=== PATIENT | male | born 1980 | race African-American/Black ===

== ENCOUNTER 2020-02-05 19:10 | Emergency (ER) | payer OTHER ==
[~2020-02-05] VITALS: Ht 185.4 cm; Wt 104.3 kg
[~2020-02-05 19:10] MED LIST: FLONASE 0.05%50 MCG NASAL; ONDANSETRON HCL4 M2 PO; ZPAK PO
[2020-02-05 20:03] LABS: ABSOLUTE NEUTROPHILS 15.4 thou/uL (1.4-8.2); BASOPHILS 0.4 % (0.0-2.0); EOSINOPHILS 0.1 % (0.0-3.0); HEMATOCRIT 43.2 % (42.0-52.0); HEMOGLOBIN 14.3 gm/dL (14.0-18.0); LYMPHOCYTES 5.6 % (24.0-44.0); MCH 28.4 pg (26.0-34.0); MCHC 33.1 g/dL (28.0-37.0); MCV 85.6 fL (80.0-100.0); MONOCYTES 8.4 % (1.0-8.0); PLATELET COUNT 253 thou/uL (150-400); POLYS 85.5 % (36.0-66.0); RBC 5.05 mil/uL (4.50-6.00); RDW 13.1 % (10.5-14.5)
[2020-02-05 20:11] LABS: CALCIUM 8.9 mg/dL (8.5-10.1); CREATININE 0.8 mg/dL (0.7-1.3); POTASSIUM 3.5 mmol/L (3.5-5.1)
[2020-02-05 20:16] LABS: ALBUMIN 4.1 g/dL (3.4-5.0); TOTAL BILIRUBIN 1.3 mg/dL (0.2-1.0)
[2020-02-05 20:36] LABS: URINE BILIRUBIN 1+ (Negative); URINE BLOOD 2+ (Negative); URINE CLARITY CLEAR; URINE COLOR YELLOW; URINE GLUCOSE-RANDOM* NEGATIVE (Negative); URINE KETONES 2+ (Negative); URINE LEUKOCYTES-REFLEX NEGATIVE (Negative); URINE NITRITE-REFLEX NEGATIVE (Negative); URINE PROTEIN (DIPSTICK) 2+ (Negative)
[2020-02-05 20:38] LABS: ICTOTEST (BILI CONFIRMATORY) Positive (Negative)
[2020-02-05 20:45] LABS: CASTS None Seen /LPF (None Seen); SQUAMOUS 0-3 Few /LPF (0-3); URINE RBC 3-10 Few /HPF (0-2); URINE WBC-REFLEX 0-5 Rare /HPF (0-5)
[2020-02-05 20:46] LABS: BACTERIA-REFLEX 1-9 Few /HPF (None Seen); CRYSTALS None Seen /LPF (None Seen); MUCUS 0-3 Light strn/LPF (None Seen)
[2020-02-05] MEDS ORDERED: ZOFRAN ODT4 MG PO (22:53)
[2020-02-05] MEDS ORDERED: NORCO 5-325 TA1 EAC2 PO (22:58)
[2020-02-05 23:02] VITALS: BP 160/85
== END 2020-02-05 23:04 | disposition home or self-care (01) ==
LOC: ER 19:10
PROVIDERS: Emergency Medicine
DX: K85.90 Acute pancreatitis without necrosis or infection, unspecified (principal); Z88.0 Allergy status to penicillin

== ENCOUNTER 2020-02-09 15:01 | Inpatient (IN) | payer OTHER ==
[~2020-02-09] VITALS: Ht 185.4 cm; Wt 93.4 kg
[~2020-02-09 15:01] MED LIST changes: +NORCO 5-325 TA1 EAC2 PO; +ZOFRAN ODT4 MG PO
[2020-02-09 15:02] VITALS: BP 153/94
[2020-02-09 15:31] LABS: HEMATOCRIT 38.8 % (42.0-52.0); HEMOGLOBIN 12.8 gm/dL (14.0-18.0); MCH 28.1 pg (26.0-34.0); MCV 85.1 fL (80.0-100.0); PLATELET COUNT 310 thou/uL (150-400); RBC 4.55 mil/uL (4.50-6.00); RDW 13.1 % (10.5-14.5); WBC 15.1 thou/uL (4.0-11.0)
[2020-02-09 15:40] LABS: CREATININE 0.7 mg/dL (0.7-1.3); POTASSIUM 3.2 mmol/L (3.5-5.1)
[2020-02-09 15:47] LABS: ALBUMIN 3.5 g/dL (3.4-5.0); TOTAL BILIRUBIN 0.9 mg/dL (0.2-1.0); TOTAL PROTEIN 8.3 g/dL (6.4-8.2)
[2020-02-09 16:17] LABS: ABSOLUTE NEUTROPHILS 12.4 thou/uL (1.4-8.2)
[2020-02-09 16:18] LABS: ANISOCYTOSIS 1+; POLYCHROMASIA OCCASIONAL
[2020-02-09 16:45] LABS: URINE BILIRUBIN 2+ (Negative); URINE BLOOD 2+ (Negative); URINE CLARITY CLEAR; URINE COLOR YELLOW; URINE GLUCOSE-RANDOM* TRACE (Negative); URINE KETONES 3+ (Negative); URINE LEUKOCYTES-REFLEX NEGATIVE (Negative); URINE NITRITE-REFLEX NEGATIVE (Negative); URINE PROTEIN (DIPSTICK) 1+ (Negative); URINE UROBILINOGEN >= 8.0 E.U./dl (0.2-1.0)
[2020-02-09 16:47] LABS: ICTOTEST (BILI CONFIRMATORY) Negative (Negative)
[2020-02-09 17:03] LABS: BACTERIA-REFLEX 1-9 Few /HPF (None Seen); CASTS None Seen /LPF (None Seen); CRYSTALS None Seen /LPF (None Seen); SQUAMOUS 0-3 Few /LPF (0-3); URINE WBC-REFLEX 0-5 Rare /HPF (0-5)
[2020-02-09 17:04] LABS: MUCUS 0-3 Light strn/LPF (None Seen)
[2020-02-09 17:42] VITALS: BP 153/94
--- NOTE | 2020-02-09 17:43 | NUR ---
FIRST ATTEMPT AT REPORT. TOLD TO CALL BACK IN 5 MINS
[2020-02-09 17:58] VITALS: BP 136/74
--- NOTE | 2020-02-09 18:31 | NUR ---
PT ARRIVED ON THE UNIT 1809, VSS, REPORTS PAIN IN LEFT ABD AREA. PT IS ACCOMPANIED BY . NURSE EDUCATED PT ABOUT CALL LIGHT AND VISITING HOURS. IV S/L IN RIGHT AC. CALL LIGHT IN REACH, WILL CONTINUE TO MONITOR.
[2020-02-09 18:36] VITALS: BP 162/80
--- NOTE | 2020-02-10 02:20 | NUR ---
ASSUMED CARE OF PT @1900. PT A&O4 ADMISSION DONE AND PT ORIENTED TO THE UNIT. IV LEAKING, NEW IV 22G INSERTED IN RT HAND. IVF INFUSING. PT NPO DUE TO PANCREATITIS. MORPHINE GIVEN FOR PAIN. PT UP AD FAMILIA. CALL LIGHT AT REACH AND WILL CONT WITH POC TILL EOS.
[2020-02-10 04:50] VITALS: BP 155/95
[2020-02-10 06:06] LABS: HEMATOCRIT 33.6 % (42.0-52.0); HEMOGLOBIN 11.2 gm/dL (14.0-18.0); MCH 28.4 pg (26.0-34.0); MCHC 33.3 g/dL (28.0-37.0); MCV 85.4 fL (80.0-100.0); RBC 3.93 mil/uL (4.50-6.00); RDW 12.8 % (10.5-14.5); WBC 13.8 thou/uL (4.0-11.0)
[2020-02-10 06:13] LABS: CALCIUM 8.4 mg/dL (8.5-10.1); CREATININE 0.8 mg/dL (0.7-1.3); MAGNESIUM 2.2 mg/dL (1.8-2.4); POTASSIUM 3.4 mmol/L (3.5-5.1)
[2020-02-10 09:28] LABS: ALBUMIN 2.9 g/dL (3.4-5.0); DIRECT BILIRUBIN 0.2 mg/dL (<0.1-0.2); TOTAL BILIRUBIN 0.7 mg/dL (0.2-1.0); TOTAL PROTEIN 7.2 g/dL (6.4-8.2)
--- NOTE | 2020-02-10 09:32 | NUR ---
ASSESSMENT: CM REVIEWED CHART AND MET WITH PATIENT. PT IS ALERT AND ORIENTED X4. PT WAS ADMITTED DUE TO PANCREATITIS. PT REPORTS THAT HE LIVES IN A HOUSE WITH HIS AND FAMILY. PT REPORTS BEING FULLY INDEPENDENT WITH ADLS AND AMBULATION. PT HAS HX OF ALCOHOL USE AND CM OFFERED TO PROVIDE RESOURCES BUT PT DECLINES STATING HE IS STOPPING DRINKING. PT DECLINES THE NEED FOR AA RESOURCES. PT REPORTS HE DOES NOT ANTICIPATE HAVING ANY NEEDS FROM CM. CM WILL CONTINUE TO FOLLOW TO ASSIST NEEDED.
[2020-02-10 10:22] VITALS: BP 174/99
--- NOTE | 2020-02-10 11:36 | NUR ---
PT IS UP AD FAMILIA, A&OX4, BLOOD PRESSURE ELEVATED, DR AMAYA NOTIFIED, TX IS MEDICATION. PT ON BOWEL REST, DIET CHANGED FROM NPO TO CLEAR LIQUIDS, WILL CONTINUE TO MONITOR.
[2020-02-10 18:22] VITALS: BP 168/87
[2020-02-10 19:28] VITALS: BP 166/91
--- NOTE | 2020-02-10 20:03 | NUR ---
DR AMAYA NOTIFIED ABOUT ELEVATED B/P, RECEIVED OR FOR HYDRALAZINE IV, BUT ON BACK ORDER FROM PHARMACY, STARTED NORVASC 5 MG, B/P 158/88. IV KNOCKED OUT ACCIDENTLY, IV TEAM REPLACED LEFT FOREARM NS AT 100CC/HR CONTINUES. TOLERATES CLEAR LIQUIDS THIS SHIFT. I AGREE WITH NURSING ASSESSMENT DONE BY NICANOR/ROCK.
[2020-02-10 20:53] VITALS: BP 158/91
--- NOTE | 2020-02-11 01:49 | NUR ---
ASSESSED AT START OF SHIFT 1900. PT AOX4 C/O PAIN MANAGED WITH MORPHINE. PT UP AD FAMILIA. BP MONITORED. IV INTACT AND FLUIDS INFUSING. PT ON CLEAR LIQUIDS DENIES N/V. CALL LIGHT AT REACH. WILL CONT WITH POC TILL EOS.
[2020-02-11 03:48] VITALS: BP 155/98
[2020-02-11 06:31] LABS: HEMATOCRIT 33.4 % (42.0-52.0); HEMOGLOBIN 10.9 gm/dL (14.0-18.0); MCH 27.9 pg (26.0-34.0); MCHC 32.6 g/dL (28.0-37.0); MCV 85.5 fL (80.0-100.0); RBC 3.91 mil/uL (4.50-6.00); RDW 13.3 % (10.5-14.5); WBC 12.5 thou/uL (4.0-11.0)
[2020-02-11 06:42] LABS: CALCIUM 8.4 mg/dL (8.5-10.1); CREATININE 0.7 mg/dL (0.7-1.3); MAGNESIUM 1.9 mg/dL (1.8-2.4); POTASSIUM 3.3 mmol/L (3.5-5.1)
--- NOTE | 2020-02-11 12:44 | NUR ---
on-going assessment: CM REVIEWED CHART. PT IS FEBRILE AND INCREASED WBC. PT IS NOT STABLE FOR DISCHARGE THIS TIME. ADVANCING PATIENTS DIET. CM WILL CONTINUE TO FOLLOW.
--- NOTE | 2020-02-11 17:20 | NUR ---
PT ASSESSED AT START OF SHIFT. STATES HE IS FEELING BETTER SINCE ADMISSION. DOES UNDERSTAND HE NEEDS TO QUITE ETOH AND IS VERY WILLING AND INTERESTED IN AA. PT AMBULATING IN THE HALLS. LAXATIVE ORDERED FOR BOWELS.
[2020-02-11 19:23] VITALS: BP 164/93
[2020-02-11 21:50] VITALS: BP 149/97
--- NOTE | 2020-02-12 03:24 | NUR ---
ASSESSED AT START OF SHIFT. PT RESTING WELL. DENIES N/V. MORPHINE GIVEN FOR PAIN 09/13. IV INTACT WITH FLUIDS INFUSING. PT UP AD FAMILIA. ENRIQUE FULL LIQUID WELL. PT EXPRESSED GREAT RELIEF TOWARDS PROGRESS AND LIFE STYLE CHANGES. CALL LIGHT AT REACH WILL CONT WITH POC TILL EOS.
[2020-02-12 06:00] LABS: HEMATOCRIT 34.1 % (42.0-52.0); HEMOGLOBIN 11.4 gm/dL (14.0-18.0); MCH 28.2 pg (26.0-34.0); MCHC 33.5 g/dL (28.0-37.0); MCV 84.3 fL (80.0-100.0); RBC 4.04 mil/uL (4.50-6.00); RDW 13.1 % (10.5-14.5); WBC 10.7 thou/uL (4.0-11.0)
[2020-02-12 06:25] LABS: CALCIUM 8.9 mg/dL (8.5-10.1); CREATININE 0.6 mg/dL (0.7-1.3); POTASSIUM 3.8 mmol/L (3.5-5.1)
[2020-02-12 07:55] VITALS: BP 155/102
--- NOTE | 2020-02-12 11:39 | NUR ---
ON-GOING ASSESSMENT: CM REVIEWED CHART AND SPOKE WITH BEDSIDE RN. PTS DIET IS ADVANCING TO SOFT AND CONTINUING WITH IV FLUIDS. PT IS FROM HOME AND SHOULD HAVE NO NEEDS AT DISCHARGE FROM . CM WILL CONTINUE TO FOLLOW TO ASSIST NEEDED.
[2020-02-12 16:01] VITALS: BP 153/89
--- NOTE | 2020-02-12 16:59 | NUR ---
Assumed care of patient at 0700. Pt. is calm and cooperative. Pt. complains of intermittent pain that is controlled with medication. No other voiced concerns.
[2020-02-12 20:33] VITALS: BP 147/94
--- NOTE | 2020-02-13 04:09 | NUR ---
ASSUMED PT CARE AT 1900.PT C/O PAIN ,MANAGED WITH MED.PT UP ADLIB IN ROOM.PT WALKED A COUPLE OF LAPS.PT EDUCATED ON THE NEED FOR HIM TO QUIT DRINKING,VOICED UNDERSTANDING.IVF INFUSING ORDERED.PT ABLETO MAKE HIS NEEDS KNOWN.CALL LIGHT WITHIN REACH.
[2020-02-13 06:27] LABS: HEMATOCRIT 35.1 % (42.0-52.0); HEMOGLOBIN 11.8 gm/dL (14.0-18.0); MCH 28.3 pg (26.0-34.0); MCHC 33.6 g/dL (28.0-37.0); MCV 84.2 fL (80.0-100.0); RBC 4.17 mil/uL (4.50-6.00); WBC 9.6 thou/uL (4.0-11.0)
[2020-02-13 06:37] LABS: CALCIUM 9.2 mg/dL (8.5-10.1); CREATININE 0.7 mg/dL (0.7-1.3); MAGNESIUM 1.9 mg/dL (1.8-2.4); POTASSIUM 3.6 mmol/L (3.5-5.1)
[2020-02-13 07:15] VITALS: BP 158/104
[2020-02-13] MEDS ORDERED: NORVASC10 MG PO (09:59)
[2020-02-13] MEDS ORDERED: LORCET 5-325 M1 EACH PO (09:59)
[2020-02-13] MEDS ORDERED: METOPROLOL TART25 MG PO (09:59)
[2020-02-13 12:42] VITALS: BP 158/104
--- NOTE | 2020-02-13 13:08 | NUR ---
ON-GOING ASSESSMENT: PT DISCHARGE HOME WITH NO NEEDS.
--- NOTE | 2020-02-13 14:18 | NUR ---
Assumed care of pt. at 0700. Pt. is calm and cooperative. Pt. is excited for possibility of discharge. Pt. was able to go the entire morning without asking for pain medication. Pt. received discharge teaching and orders prior to leaving with emphasis on mechanical soft diet and urgencyu of GI speacilist appointment. Pt. was discharged off unit with belongings.
[2020-02-13 18:10] LABS: TSH 1.997 uIU/mL (0.358-3.740)
== END 2020-02-13 13:01 | disposition home or self-care (01) | DRG 438 ==
LOC: ER 15:01 → 4S 17:23 → EROBS 17:23 → 4S 17:58
PROVIDERS: Physician Assistant; ADMIT Internal Medicine; ATTEND Internal Medicine
DX: K85.90 Acute pancreatitis without necrosis or infection, unspecified (principal); R65.11 Systemic inflammatory response syndrome (SIRS) of non-infectious origin with acute organ dysfunction; I10 Essential (primary) hypertension; E66.3 Overweight; E87.6 Hypokalemia; R74.01 Elevation of levels of liver transaminase levels; Y90.9 Presence of alcohol in blood, level not specified; F19.10 Other psychoactive substance abuse, uncomplicated; D72.829 Elevated white blood cell count, unspecified; R50.9 Fever, unspecified; K59.00 Constipation, unspecified; R16.0 Hepatomegaly, not elsewhere classified; F10.20 Alcohol dependence, uncomplicated; Z68.27 Body mass index [BMI] 27.0-27.9, adult; Z88.0 Allergy status to penicillin; Z79.899 Other long term (current) drug therapy
CPT/HCPCS: 10195

== ENCOUNTER 2020-07-05 09:39 | Inpatient (IN) | payer OTHER ==
[~2020-07-05] VITALS: Ht 185.4 cm; Wt 99.9 kg
[~2020-07-05 09:39] MED LIST changes: +LORCET 5-325 M1 EACH PO; +METOPROLOL TART25 MG PO; +NORVASC10 MG PO
[2020-07-05 09:45] VITALS: BP 158/90
[2020-07-05 10:13] LABS: ABSOLUTE NEUTROPHILS 13.3 thou/uL (1.4-8.2); BASOPHILS 0.6 % (0.0-2.0); EOSINOPHILS 0.2 % (0.0-3.0); HEMATOCRIT 45.9 % (42.0-52.0); MCH 27.6 pg (26.0-34.0); MCHC 32.7 g/dL (28.0-37.0); MCV 84.6 fL (80.0-100.0); MONOCYTES 7.4 % (1.0-8.0); PLATELET COUNT 284 thou/uL (150-400); POLYS 84.8 % (36.0-66.0); RBC 5.42 mil/uL (4.50-6.00); RDW 13.9 % (10.5-14.5); WBC 15.7 thou/uL (4.0-11.0)
[2020-07-05 10:14] LABS: AMP/METHAMP Negative (Negative); BARBITURATES Negative (Negative); BENZODIAZEPINES Negative (Negative); COCAINE Negative (Negative); METHADONE Negative (Negative); OPIATES Negative (Negative); PCP Negative (Negative)
[2020-07-05 10:17] LABS: URINE BLOOD TRACE (Negative); URINE CLARITY CLEAR; URINE COLOR YELLOW; URINE GLUCOSE-RANDOM* NEGATIVE (Negative); URINE KETONES 3+ (Negative); URINE LEUKOCYTES-REFLEX NEGATIVE (Negative); URINE NITRITE-REFLEX NEGATIVE (Negative); URINE PROTEIN (DIPSTICK) 1+ (Negative); URINE SPECIFIC GRAVITY >= 1.030 (1.005-1.035)
[2020-07-05 10:17] LABS: CALCIUM 9.3 mg/dL (8.5-10.1)
[2020-07-05 10:26] LABS: ALBUMIN 4.5 g/dL (3.4-5.0); TOTAL BILIRUBIN 1.6 mg/dL (0.2-1.0); TOTAL PROTEIN 8.2 g/dL (6.4-8.2)
[2020-07-05 10:26] LABS: ICTOTEST (BILI CONFIRMATORY) Negative (Negative); URINE BILIRUBIN NEGATIVE (Negative)
[2020-07-05 10:27] LABS: URINE REDUCING SUBSTANCE NEGATIVE
[2020-07-05 11:10] LABS: MUCUS >6 Heavy strn/LPF (None Seen); SQUAMOUS 0-3 Few /LPF (0-3)
[2020-07-05 11:11] LABS: URINE RBC 0-2 Rare /HPF (0-2); YEAST-REFLEX Present (None Seen)
[2020-07-05 11:12] LABS: BACTERIA-REFLEX 1-9 Few /HPF (None Seen); CASTS None Seen /LPF (None Seen); CRYSTALS None Seen /LPF (None Seen); URINE WBC-REFLEX 0-5 Rare /HPF (0-5)
[2020-07-05 12:55] LABS: CHOLESTEROL 195 mg/dL (<200); HDL CHOLESTEROL 91 mg/dL (>40); LDL CHOLESTEROL 82 mg/dL (<100); TC:HDL 2.1 Ratio (Not establshd); TRIGLYCERIDE 114 mg/dL (<150); VLDL 23 mg/dL (<40)
[2020-07-05 17:48] VITALS: BP 134/78
[2020-07-05 17:52] VITALS: BP 134/72
[2020-07-05 18:21] VITALS: BP 184/90
--- NOTE | 2020-07-05 19:25 | NUR ---
ASSUMED CARE OF PT APPROX 181, PT A&OX4, VSS, PAIN AT 5 IN ABDOMEN. PATIENT RESTING IN BED. CIWA SCORE AT 4, IV RIGHT AC. PATIENT REQUESTING FLUIDS, NPO ORDERS, NOC NURSE MADE AWARE. PATIENT ROOM AIR, NO SIGNS OF DISTRESS. WILL CONTINUE TO MONITOR. PATIENT BLOOD PRESSURE AT 1820 WAS APPROX 184/90, PATIENT DENIES HEADACHE, CHEST PAIN, SOA, DIZZINESS. THIS RECENT BLOOD PRESSURE IS HIGHER THAN LATEST TAKEN, ASKED CLINCHING MACHINE OPERATOR TO RECHECK.
[2020-07-05 20:15] VITALS: BP 181/93
[2020-07-05 21:23] VITALS: BP 164/85
--- NOTE | 2020-07-06 01:49 | NUR ---
Pt admitted from ED at shift change with pancreatitis. A/OX4,VSS. C/o abd pain,medicated per EMAR with some relief reported. Pt on CIWA protocol score;3 medicated with Ativan as needed and effective. Up ad hanane,encoyaraged to call for help as needed. Order for NS obtained and implemented, infusing via RAC w/o problems. SR on telemetry,will continue to monitor pt.
[2020-07-06 04:47] VITALS: BP 148/95
[2020-07-06 06:32] LABS: ALBUMIN 3.7 g/dL (3.4-5.0); CALCIUM 8.9 mg/dL (8.5-10.1); POTASSIUM 3.3 mmol/L (3.5-5.1); TOTAL PROTEIN 7.5 g/dL (6.4-8.2)
[2020-07-06 09:47] VITALS: BP 157/103
--- NOTE | 2020-07-06 13:48 | NUR ---
PT ADMITTED RELATED TO PANCREATITIS. CM REVEIWED CHART AND SPOKE WITH CARE TEAM. CM SPOKE WITH PT OVER THE PHONE THIS DAY. PT APPEARED TO BE A&O X4. CM ROLE INTRODUCED. PT INDICATED HE RESIDES IN A DUPLEX WITH HIS SPOUSE AND KIDS. PT INDICATED THERE ARE 3 STEPS TO ENTER AND A FULL FLIGHT INSIDE. 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 PT INDICATED NO DME OR HH HX. PT INDICATED HE HAS INSURANCE THROUGH HIS EMPLOYER [employer] AND THAT IT'S A [employer] PLAN. UR NURSE NOTIFIED. IT IS ANTICPATED THAT PT WILL LIKELY BE ABLE TO DISCHARGE HOME WITH NO NEEDS ONCE MEDICALLY STABLE.
--- NOTE | 2020-07-06 17:25 | NUR ---
Assumed pt care this am, Vs stable, maintained on NPO. On CIWA protocol scoring 4 as the highest , assessed q4. Blood sugar checks done, no coverage was required. Pain is managed with medications, was asleep for most of the day. No nausea was noted. REport given to 3 shannon nurse to transfer to room 359, awaiting for rooom to be cleaned.
[2020-07-06 17:45] VITALS: BP 155/102
[2020-07-06 19:45] VITALS: BP 156/103
[2020-07-07 03:48] VITALS: BP 148/99
[2020-07-07 05:47] LABS: CALCIUM 8.4 mg/dL (8.5-10.1); MAGNESIUM 1.9 mg/dL (1.8-2.4); POTASSIUM 3.6 mmol/L (3.5-5.1); TOTAL BILIRUBIN 1.1 mg/dL (0.2-1.0); TOTAL PROTEIN 6.6 g/dL (6.4-8.2)
--- NOTE | 2020-07-07 06:30 | NUR ---
PROGRESS PT A/O X4 UP AD FAMILIA, VSS. REPORTS PAIN TO UPPER RIGHT ABDOMEN THAT RADIATES TO ALL QUADS TAKING 2 MG MORPHINE Q4HRS WITH SOME EFFECT HE STATES HE GETS RELIEF FOR AN HOUR. REQUESTED A CLEAR LIQUID DIET CALL TO CARMELA BOSTON FOR ORDERS SHE STATED HE MAY HAVE ICE CHIPS SPARINGLY GIVEN 1/2 CUP Q4HS. VOIDING QS DARK KAIT URINE. SLEPT PRONE FROM 2130 TO 4 AM SAS UP TO 9% THIS AM. CONTINUE POC.
[2020-07-07 07:38] VITALS: BP 151/90
--- NOTE | 2020-07-07 13:23 | NUR ---
SW reviewed chart and spoke with nursing and attending physician. Pt was transferred to 3W from 4W. Pt's diet is being advanced today. Psych evaluated pt and recommendation made for pt to go to outpatient ETOH treatment. SW placed call to pt's room. No answer. SW will provide pt with outpatient ETOH treatment options and assist as needed with discharge planning.
--- NOTE | 2020-07-07 18:44 | NUR ---
RN ASSUMED PT'S CARE AT 0700AM, PT IS A&0 X3, PT 'S VS ARE STABLE, PT 'S ABD PAIN AND N/V HAVE IMPROVED, PT IS TOLERATED CLEAR LIQUID DIET, PT CAN GET TO BATH ROOM WITHOUT HELP.
[2020-07-07 19:45] VITALS: BP 150/90
[2020-07-08 05:14] VITALS: BP 143/91
[2020-07-08 05:15] LABS: HEMATOCRIT 39.8 % (42.0-52.0); MCH 28.1 pg (26.0-34.0); MCHC 32.6 g/dL (28.0-37.0); MCV 86.1 fL (80.0-100.0); RBC 4.62 mil/uL (4.50-6.00); RDW 13.6 % (10.5-14.5); WBC 13.9 thou/uL (4.0-11.0)
--- NOTE | 2020-07-08 06:39 | NUR ---
PAIN MANAGEMENT WAS GOAL FOR EVENING AND IT WORKED WELL. TYLENOL GIVEN X1 AT 2100 AND MORPHINE X1 AT 0300 WITH ZOFRAN . PT UP TO BATHROOM AD FAMILIA. VSS AND POC WITH IVF GTT AT 75ML.
[2020-07-08 08:43] VITALS: BP 157/88
--- NOTE | 2020-07-08 13:33 | NUR ---
SW reviewed chart and spoke with nursing and attending physician. Pt is progressing towards goals for discharge. Discharge home is anticipated for tomorrow. Pt is on full liquid diet today. CHRIS met with pt at bedside to discuss discharge plan. Pt's insurance is [employer] [place]. SW provided pt with outpatient ETOH treatment options and resources ([employer] list, AA list and [facility]). Pt verbalized understanding and states that he would prefer outpatient treatment or AA. Plan is for pt to discharge home when medically stable. CHRIS is following to assist as needed with discharge planning.
[2020-07-08 16:04] VITALS: BP 142/93
--- NOTE | 2020-07-08 18:46 | NUR ---
MAO HAS REQUESTED PAIN MEDICATION Q4 STATING PAIN TO LOWER ABDOMEN IS SEVERE AT TIMES. WILL CONT WITH PLAN OF CARE.
[2020-07-08 19:01] VITALS: BP 149/87
--- NOTE | 2020-07-08 19:36 | NUR ---
PT RESTING IN BED. IVF INTACT. PT STATED HE ADMITTED TO BEING AN ALCOHOLIC TO HIS . PT REPORTS CONTINUED ABD PAIN AND BEING ADMITTED WITH PANCREATITIS 2 TIMES IN THE LAST 6 MONTHS. PT IS INDEPENDENT WITH AMBULATION.
[2020-07-09 04:00] VITALS: BP 156/90
[2020-07-09 07:35] VITALS: BP 146/90
[2020-07-09] MEDS ORDERED: CHLORDIAZEPOXID10 MG PO (09:15)
[2020-07-09 09:22] VITALS: BP 146/90
--- NOTE | 2020-07-09 11:30 | NUR ---
DISCHARGE NOTE: SW reviewed chart and spoke with nursing and attending physician. Pt is medically stable for discharge home today. SW met with pt at bedside to discuss discharge plan. Pt is agreeable with plan. Pt states he has reviewed the information regarding ETOH treatment options. Pt has an AA meeting scheduled for 1900 this evening. Pt will have transportation home when discharged. No additional SW needs identified at this time, but is available to assist should needs arise.
--- NOTE | 2020-07-09 11:34 | NUR ---
PT IS BEING DISCHARGED TODAY, ALL INSTRUCTIONS GIVEN PT VERBALIZES UNDERSTANDING, WAS GIVEN ONE DOSE OF IV MORPHINE PRIOR TO DISCHARGE PER PAIN REQUEST. PT SEEN BY . PT LEAVING WITH ALL BELONGINGS AT THIS TIME
== END 2020-07-09 11:47 | disposition home or self-care (01) | DRG 439 ==
LOC: ER 09:39 → 3W 12:38 → EROBS 12:38 → 4W 18:00 → 3W 07-06 18:18
PROVIDERS: Emergency Medicine; ADMIT Hospitalist; ATTEND Hospitalist
DX: K85.90 Acute pancreatitis without necrosis or infection, unspecified (principal); K86.3 Pseudocyst of pancreas; F10.20 Alcohol dependence, uncomplicated; Y90.9 Presence of alcohol in blood, level not specified; I10 Essential (primary) hypertension; Z88.0 Allergy status to penicillin; Z79.899 Other long term (current) drug therapy
CPT/HCPCS: 10045; 10879

== ENCOUNTER 2020-12-27 11:41 | Inpatient (IN) | payer OTHER ==
[~2020-12-27] VITALS: Ht 185.4 cm; Wt 98.6 kg
[~2020-12-27 11:41] MED LIST changes: +CHLORDIAZEPOXID10 MG PO
[2020-12-27 11:44] VITALS: BP 172/97
[2020-12-27] MEDS ORDERED: METOPROLOL TART25 MG PO (11:47)
[2020-12-27 12:13] LABS: ABSOLUTE NEUTROPHILS 8.7 thou/uL (1.4-8.2); BASOPHILS 0.2 % (0.0-2.0); EOSINOPHILS 0.6 % (0.0-3.0); HEMATOCRIT 38.4 % (42.0-52.0); HEMOGLOBIN 12.8 gm/dL (14.0-18.0); LYMPHOCYTES 14.1 % (24.0-44.0); MCH 27.9 pg (26.0-34.0); MCHC 33.5 g/dL (28.0-37.0); MCV 83.2 fL (80.0-100.0); MONOCYTES 9.6 % (1.0-8.0); PLATELET COUNT 281 thou/uL (150-400); POLYS 75.5 % (36.0-66.0); RBC 4.61 mil/uL (4.50-6.00); RDW 13.5 % (10.5-14.5); WBC 11.5 thou/uL (4.0-11.0)
[2020-12-27 12:18] LABS: POTASSIUM 3.2 mmol/L (3.5-5.1)
[2020-12-27 12:24] LABS: ALBUMIN 4.4 g/dL (3.4-5.0); TOTAL PROTEIN 7.6 g/dL (6.4-8.2)
[2020-12-27 23:17] VITALS: BP 151/88; BP 159/89
--- NOTE | 2020-12-28 05:52 | NUR ---
Pt admitted at approx 2305 with acute pancreatitis. A/OX4,VSS,up ad hanane. Denies N/V, c/o epigastric pain 11/13 medicated with Morphine with relief reported. No skin issues noted. Resting w/o distress. Will continue to monitor pt.
[2020-12-28 10:37] VITALS: BP 159/89
--- NOTE | 2020-12-28 11:04 | NUR ---
Pt is AXOX4 no s/s of infection noted. Remains on a npo diet. IV in left FA running D5 and 30%KCL at 100ml/hour. Pt is up ab hanane. Taking morphine 4mg to relieve pain. Pt is not on tele is a medical surg patient. Bed in low position and call light within reach. Will continue to monitor until the end of the shift.
--- NOTE | 2020-12-28 11:47 | NUR ---
PT ADMITTED RELATED TO ACUTE PANCREATITIS. CM REVIEWED CHART AND SPOKE WITH CARE TEAM. CM MET WITH PT AT BEDSIDE THIS DAY PT APPEARED TO BE A&O X4. CM ROLE INTRODUCED. PT INDICATED HE LIVES IN A DUPLEX WITH HIS SPOUSE AND KIDS. PT INDICATED 3 STEPS TO ENTER AND 12 STEPS INSIDE. 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 PT INDICATED HE STARTED A NEW JOB WITH [employer] AND HIS INSURANCE ISN'T EFFECTIVE OF YET. PT HAS PCP AND IS ABLE TO PAY FOR ANY SCRIPTS ORDERED UPON DC. CM FOLLOWING REGARDING DC PLANNING.
[2020-12-28 16:55] VITALS: BP 133/82
[2020-12-29 05:27] LABS: ABSOLUTE NEUTROPHILS 4.4 thou/uL (1.4-8.2); BASOPHILS 0.5 % (0.0-2.0); EOSINOPHILS 1.9 % (0.0-3.0); HEMATOCRIT 39.6 % (42.0-52.0); HEMOGLOBIN 13.3 gm/dL (14.0-18.0); LYMPHOCYTES 24.4 % (24.0-44.0); MCH 28.6 pg (26.0-34.0); MCHC 33.5 g/dL (28.0-37.0); MCV 85.2 fL (80.0-100.0); MONOCYTES 9.5 % (1.0-8.0); PLATELET COUNT 278 thou/uL (150-400); POLYS 63.7 % (36.0-66.0); RBC 4.65 mil/uL (4.50-6.00); RDW 13.7 % (10.5-14.5); WBC 6.8 thou/uL (4.0-11.0)
[2020-12-29 05:55] LABS: ALBUMIN 3.9 g/dL (3.4-5.0); CALCIUM 8.7 mg/dL (8.5-10.1); CREATININE 0.8 mg/dL (0.7-1.3); MAGNESIUM 2.2 mg/dL (1.8-2.4); PHOSPHORUS 3.2 mg/dL (2.5-4.9); POTASSIUM 4.1 mmol/L (3.5-5.1); TOTAL BILIRUBIN 0.8 mg/dL (0.2-1.0); TOTAL PROTEIN 7.6 g/dL (6.4-8.2)
--- NOTE | 2020-12-29 06:13 | NUR ---
Pt. rested quietly at intervals during the night when checked on during frequent rounds. Pain meds given (see emar) for abdominal pain with some relief noted.
[2020-12-29 07:38] VITALS: BP 151/89
--- NOTE | 2020-12-29 11:47 | NUR ---
PT IS PROGRESSING TOWARDS DISCHARGE AT THIS TIME, CLEAR LIQ DIET WAS ORDERED, NO INDICATION OF VOMITTING/NAUSEA FROM THE PATIENT TODAY, STATES THAT HE IS STILL HAVING EPIGASTRIC PAIN, MORPHINE WAS PROVIDED PER REQUEST/ORDERED. PT COMMENTS CONTENT WITH CARE BEING PROVIDED
[2020-12-29 15:41] VITALS: BP 157/86
--- NOTE | 2020-12-29 15:58 | NUR ---
PT'S DIET HAD BEEN DVANCED TO FULL LIQUIDS AND HE TOLERATED THEM AT LUNCH. HE IS TO HAVE THEM AGAIN FOR DINNER AND DC HOME IF HE TOLERATES THEM. PT TO DC HOME TO SELF CARE. NO OTHER CM INTERVENTION INDICTED. CASE CLOSED.
[2020-12-29 16:47] VITALS: BP 157/86
--- NOTE | 2020-12-29 17:02 | NUR ---
ASSUMED PATIENTS CARE AT 1300. PATIENT COMPLAINED OF PAIN X1. PAIN MEDICATION GIVEN. PATIENT ON FULL LIQUID DIET FOR LUNCH AND TOLERATED WELL. PATIENT CAN DISCHARGE IF HE TOLERATED FULL LIQUID FOR DINNER. WILL CONTINUE TO MONITOR.
[2020-12-29 18:36] VITALS: BP 157/86
== END 2020-12-29 18:39 | disposition home or self-care (01) | DRG 440 ==
LOC: ER 11:41 → EROBS 14:29 → 4W 21:29
PROVIDERS: Emergency Medicine; Internal Medicine; ADMIT Hospitalist; ATTEND Hospitalist
DX: K85.20 Alcohol induced acute pancreatitis without necrosis or infection (principal); I10 Essential (primary) hypertension; F12.90 Cannabis use, unspecified, uncomplicated; F17.210 Nicotine dependence, cigarettes, uncomplicated; E87.6 Hypokalemia; Z20.822 Contact with and (suspected) exposure to COVID-19; Z88.0 Allergy status to penicillin
CPT/HCPCS: 10040

== ENCOUNTER 2021-02-22 00:30 | Inpatient (IN) | payer OTHER ==
[~2021-02-22] VITALS: Ht 193 cm; Wt 99.8 kg
[2021-02-22] VITALS (7 sets, daily range): BP systolic 147–169; BP diastolic 70–94
[2021-02-22 01:05] LABS: ABSOLUTE NEUTROPHILS 9.9 thou/uL (1.4-8.2); BASOPHILS 0.3 % (0.0-2.0); EOSINOPHILS 0.1 % (0.0-3.0); HEMATOCRIT 38.8 % (42.0-52.0); HEMOGLOBIN 12.9 gm/dL (14.0-18.0); LYMPHOCYTES 7.8 % (24.0-44.0); MCH 28.3 pg (26.0-34.0); MCHC 33.4 g/dL (28.0-37.0); MCV 84.7 fL (80.0-100.0); MONOCYTES 9.5 % (1.0-8.0); PLATELET COUNT 236 thou/uL (150-400); POLYS 82.3 % (36.0-66.0); RBC 4.58 mil/uL (4.50-6.00); RDW 14.1 % (10.5-14.5)
[2021-02-22 01:09] LABS: CALCIUM 8.6 mg/dL (8.5-10.1); CREATININE 0.7 mg/dL (0.7-1.3); POTASSIUM 3.4 mmol/L (3.5-5.1)
[2021-02-22 01:17] LABS: ALBUMIN 4.2 g/dL (3.4-5.0); TOTAL BILIRUBIN 0.8 mg/dL (0.2-1.0); TOTAL PROTEIN 7.4 g/dL (6.4-8.2)
--- NOTE | 2021-02-22 05:29 | NUR ---
RECEIVED CARE OF THIS PATIENT AT 0340 FROM ED VIA WC ACCOMPANIED BY ED PERSONEL. PATIENT ALERT AND ORIENTED X4. UP AD FAMILIA. C/O PAIN IN ABD. REMAINS NPO. IV INFUSING. SLEPT OFF AND ON DURING NIGHT.
--- NOTE | 2021-02-22 10:06 | NUR ---
Assumed care of pt at 0700. Pt a&ox4. Pain controlled. IVF infusing. Diet advanced to CL. No other c/o at this time. Call light within reach. Will continue to monitor.
--- NOTE | 2021-02-22 11:51 | NUR ---
INITIAL ASSESSMENT: SW reviewed chart and spoke with nursing and attending physician. Pt was admitted from home due to pancreatitis. Pt with hx of ETOH use. GI consulted. Pt to be started on clear liquids at lunch today. SW met with pt at bedside. Introduced role of SW. Pt is alert/orientated x 4. Pt reports he lives at home with his family. Prior to admission, pt was independent with ADLs. No use of DME. No hx of HH services or post-acute placement. Pt does not currently have a PCP. Pt states he recently started a new job and is not eligible for insurance yet. [facility] to screen pt. Plan is for pt to discharge home when medically stable. SW is following to assist as needed with discharge planning.
--- NOTE | 2021-02-23 06:04 | NUR ---
RECEIVED CARE OF THIS PATIENT AT 1900. PATIENT ALERT AND ORIENTED X4. UP AD FAMILIA. C/O PAIN, MED GIVEN. IV INFUSING. SLEPT MOST OF NIGHT.
[2021-02-23 07:33] LABS: CREATININE 0.5 mg/dL (0.7-1.3); POTASSIUM 3.2 mmol/L (3.5-5.1)
[2021-02-23 08:39] LABS: CALCIUM 8.7 mg/dL (8.5-10.1)
[2021-02-23] MEDS ORDERED: ZOFRAN 4 MG ORAL4 MG PO (14:17)
[2021-02-23 16:17] VITALS: BP 149/87
--- NOTE | 2021-02-23 18:41 | NUR ---
PT ALERT AND ORIENTED TIMES FOUR. VSS, IVF INFUASING PER ORDER. PT C/O PAIN PRN PAIN MEDICATIONS CONTROLLING PAIN WELL. PT TOLERATING CLEAR LIQUIDS ONLY. PT UP AT FAMILIA. DISCHARGE CANCELED FOR TODAY. WILL CONTINUE TO MONITOR.
[2021-02-23 19:21] VITALS: BP 149/91
--- NOTE | 2021-02-24 03:02 | NUR ---
PT IS A/O X4 AND IS UP AD FAMILIA. PLEASANT AND COOPERATIVE. CALLS OUT APPROPRIATELY FOR ASSISTANCE. UNABLE TO ADVANCE DIET WITHOUT NAUSEA AND ABDOMINAL PAIN. PT HAD A CUP OF CHICKEN BROTH AND STATED HE FELT BETTER WITH JUST CLEAR LIQ. NO BM THIS SHIFT. VOIDS INDEPENDENTLY TO THE TOILET. MEDICATONS GIVEN PER MAR. CALL LIGHT IS WITHIN REACH.
[2021-02-24 04:31] VITALS: BP 158/96
[2021-02-24 08:28] VITALS: BP 153/87
--- NOTE | 2021-02-24 11:50 | NUR ---
DISCHARGE NOTE: SW reviewed chart and spoke with nursing and attending physician. Pt is progressing towards goals for discharge. Pt will discharge home if able to tolerate regular diet. Pt will have transportation home when discharged. No SW needs identified at this time. SW is available to assist should needs arise.
--- NOTE | 2021-02-24 14:30 | NUR ---
TODAY THIS PT IS GEARING UP FOR D/C HE HAS HAD SOME PAIN BUT HAS BEEN MEDICATED HE TOLERATED HIS FOOD WELL AND HAS OTHERWISE BEEN READY TO BE D/C
[2021-02-24] MEDS ORDERED: PROTONIX40 M2 PO (15:46)
[2021-02-24 15:57] VITALS: BP 153/87
== END 2021-02-24 16:13 | disposition home or self-care (01) | DRG 440 ==
LOC: ER 00:30 → 4S 02:28 → EROBS 02:28 → 4S 03:30
PROVIDERS: Emergency Medicine; Nurse Practitioner Family; ADMIT Hospitalist; ATTEND Hospitalist
DX: K85.20 Alcohol induced acute pancreatitis without necrosis or infection (principal); I10 Essential (primary) hypertension; K86.1 Other chronic pancreatitis; F17.210 Nicotine dependence, cigarettes, uncomplicated; E87.6 Hypokalemia; F10.20 Alcohol dependence, uncomplicated; F41.9 Anxiety disorder, unspecified; F12.10 Cannabis abuse, uncomplicated; Z20.822 Contact with and (suspected) exposure to COVID-19; Z88.0 Allergy status to penicillin; Z71.6 Tobacco abuse counseling
CPT/HCPCS: 10195

== ENCOUNTER 2021-05-13 05:53 | Inpatient (IN) | payer BC ==
[~2021-05-13] VITALS: Ht 185.4 cm; Wt 93.0 kg
[~2021-05-13 05:53] MED LIST changes: +PROTONIX40 M2 PO; +ZOFRAN 4 MG ORAL4 MG PO
[2021-05-13 05:54] VITALS: BP 174/95
[2021-05-13] MEDS ORDERED: TRAMADOL 50 MG50 MG PO (06:00)
[2021-05-13 06:56] LABS: ABSOLUTE NEUTROPHILS 7.8 thou/uL (1.4-8.2); BASOPHILS 0.5 % (0.0-2.0); EOSINOPHILS 0.7 % (0.0-3.0); HEMATOCRIT 42.1 % (42.0-52.0); HEMOGLOBIN 13.7 gm/dL (14.0-18.0); LYMPHOCYTES 14.5 % (24.0-44.0); MCH 27.6 pg (26.0-34.0); MCHC 32.4 g/dL (28.0-37.0); MCV 85.2 fL (80.0-100.0); MONOCYTES 10.8 % (1.0-8.0); PLATELET COUNT 264 thou/uL (150-400); POLYS 73.5 % (36.0-66.0); RBC 4.94 mil/uL (4.50-6.00); RDW 14.2 % (10.5-14.5); WBC 10.6 thou/uL (4.0-11.0)
[2021-05-13 06:57] LABS: URINE BILIRUBIN 1+ (Negative); URINE BLOOD 1+ (Negative); URINE CLARITY CLEAR; URINE COLOR YELLOW; URINE GLUCOSE-RANDOM* NEGATIVE (Negative); URINE KETONES 3+ (Negative); URINE LEUKOCYTES-REFLEX NEGATIVE (Negative); URINE NITRITE-REFLEX NEGATIVE (Negative); URINE PROTEIN (DIPSTICK) 1+ (Negative); URINE SPECIFIC GRAVITY >= 1.030 (1.005-1.035)
[2021-05-13 07:00] LABS: CALCIUM 9.1 mg/dL (8.5-10.1); CREATININE 0.8 mg/dL (0.7-1.3); POTASSIUM 3.4 mmol/L (3.5-5.1)
[2021-05-13 07:12] LABS: CASTS None Seen /LPF (None Seen); MUCUS 0-3 Light strn/LPF (None Seen); SQUAMOUS 0-3 Few /LPF (0-3); URINE RBC 1-2 Rare /HPF (NONE SEEN); URINE WBC-REFLEX 0-5 Rare /HPF (0-5)
[2021-05-13 07:13] LABS: BACTERIA-REFLEX 1-9 Few /HPF (None Seen); CRYSTALS None Seen /LPF (None Seen)
[2021-05-13 07:15] LABS: ALBUMIN 4.3 g/dL (3.4-5.0); TOTAL BILIRUBIN 1.1 mg/dL (0.2-1.0); TOTAL PROTEIN 7.7 g/dL (6.4-8.2)
[2021-05-13 08:25] VITALS: BP 184/97
[2021-05-13 13:00] VITALS: BP 185/77
[2021-05-13 20:00] VITALS: BP 165/72
[2021-05-14 02:46] VITALS: BP 164/93
--- NOTE | 2021-05-14 04:46 | NUR ---
NEW ADMISSION FOR PANCREATITIS. PATIENT IS AOX4 MAKES NEEDS KNOWN. PATIENT AMBULATES TO THE BATHROOM WITH STEADY GAITS. PATIENT DECLINED FLU AND COVID VACCINE. CLEAR LIQUIDS OFFERED THIS SHIFT. PATIENT ON CLEAR LIQUIDS. PAIN AND NAUSEA CONTROLLED THIS SHIFT. PATIENT IS UP AT FAMILIA. PATIENT IN BED ASLEEP AT THIS TIMR BREATHING REGULAR AND UNLABOURED.
[2021-05-14 06:10] LABS: HEMATOCRIT 38.6 % (42.0-52.0); HEMOGLOBIN 12.6 gm/dL (14.0-18.0); MCHC 32.8 g/dL (28.0-37.0); MCV 85.6 fL (80.0-100.0); RBC 4.51 mil/uL (4.50-6.00); RDW 14.1 % (10.5-14.5); WBC 10.1 thou/uL (4.0-11.0)
[2021-05-14 06:20] LABS: CALCIUM 8.8 mg/dL (8.5-10.1); CREATININE 0.8 mg/dL (0.7-1.3); POTASSIUM 3.3 mmol/L (3.5-5.1)
[2021-05-14 07:48] VITALS: BP 160/94
[2021-05-14 11:31] VITALS: BP 160/94
[2021-05-14 15:29] VITALS: BP 174/99
--- NOTE | 2021-05-14 16:15 | NUR ---
patient up as own, axox4. pain medications given prn, no nausea. call light within reach, will continous monitoring.
[2021-05-14 18:13] VITALS: BP 174/99
[2021-05-14 19:39] VITALS: BP 170/92
--- NOTE | 2021-05-15 04:23 | NUR ---
RECEIVED CARE OF THIS PATIENT AT 1900. PATIENT ALERT AND ORIENTED X4. UP AD FAMILIA. IV PATENT IN RAC WITH FLUIDS INFUSING. C/O PAIN, MED GIVEN. SLEPT OFF AND ON DURING NIGHT.
[2021-05-15 06:21] LABS: ABSOLUTE NEUTROPHILS 3.8 thou/uL (1.4-8.2); BASOPHILS 0.5 % (0.0-2.0); EOSINOPHILS 1.3 % (0.0-3.0); HEMATOCRIT 39.4 % (42.0-52.0); HEMOGLOBIN 12.9 gm/dL (14.0-18.0); MCH 28.1 pg (26.0-34.0); MCHC 32.8 g/dL (28.0-37.0); MCV 85.7 fL (80.0-100.0); MONOCYTES 17.8 % (1.0-8.0); PLATELET COUNT 244 thou/uL (150-400); POLYS 58.4 % (36.0-66.0); RDW 14.1 % (10.5-14.5); WBC 6.5 thou/uL (4.0-11.0)
[2021-05-15 06:59] LABS: ALBUMIN 3.5 g/dL (3.4-5.0); CALCIUM 9.1 mg/dL (8.5-10.1); CREATININE 0.8 mg/dL (0.7-1.3); PHOSPHORUS 3.8 mg/dL (2.5-4.9); POTASSIUM 3.5 mmol/L (3.5-5.1); TOTAL BILIRUBIN 0.8 mg/dL (0.2-1.0); TOTAL PROTEIN 7.2 g/dL (6.4-8.2)
[2021-05-15 07:22] VITALS: BP 158/87
[2021-05-15 08:23] VITALS: BP 158/87
[2021-05-15 15:28] VITALS: BP 168/104
[2021-05-15 19:41] VITALS: BP 166/95
[2021-05-16 06:08] LABS: ABSOLUTE NEUTROPHILS 3.7 thou/uL (1.4-8.2); BASOPHILS 0.6 % (0.0-2.0); EOSINOPHILS 1.5 % (0.0-3.0); HEMATOCRIT 38.2 % (42.0-52.0); HEMOGLOBIN 12.7 gm/dL (14.0-18.0); LYMPHOCYTES 24.3 % (24.0-44.0); MCH 28.3 pg (26.0-34.0); MCHC 33.1 g/dL (28.0-37.0); MCV 85.4 fL (80.0-100.0); MONOCYTES 17.1 % (1.0-8.0); PLATELET COUNT 244 thou/uL (150-400); POLYS 56.5 % (36.0-66.0); RBC 4.48 mil/uL (4.50-6.00); RDW 13.9 % (10.5-14.5); WBC 6.6 thou/uL (4.0-11.0)
[2021-05-16 06:38] LABS: INR 0.98; PROTIME 10.7 Seconds (10.5-12.1)
[2021-05-16 06:53] LABS: CALCIUM 9.2 mg/dL (8.5-10.1); CREATININE 0.8 mg/dL (0.7-1.3); MAGNESIUM 2.1 mg/dL (1.8-2.4); PHOSPHORUS 4.6 mg/dL (2.5-4.9)
--- NOTE | 2021-05-16 07:17 | NUR ---
Assumed care on 05/15/21 @ 1900, pleasant and cooperative with care, A&Ox4, fluids running via Right AC IV site. Full Liquid diet. VS 166/95 71 18 100% SpO2 on room air. New order for KCL 20meq tabs one time dose given, tolerated well. Full code allergy to penacillin. Call light in reach, continent of B&B toilets self.
[2021-05-16 08:00] VITALS: BP 151/93
[2021-05-16 08:14] VITALS: BP 151/93
[2021-05-16] MEDS ORDERED: NICOTINE1 EAC2 TRANSDERM (15:27)
[2021-05-16] MEDS ORDERED: METOPROLOL SUCC25 M1 PO (15:27)
[2021-05-16] MEDS ORDERED: NORVASC10 MG PO (15:28)
[2021-05-16 15:44] VITALS: BP 151/93
== END 2021-05-16 15:50 | disposition home or self-care (01) | DRG 440 ==
LOC: ER 05:53 → EROBS 07:56 → 4S 07:56 → EROBS 12:17 → 4S 05-14 02:26
PROVIDERS: Emergency Medicine; Internal Medicine; ADMIT Hospitalist; ATTEND Hospitalist
DX: K85.90 Acute pancreatitis without necrosis or infection, unspecified (principal); I10 Essential (primary) hypertension; F12.90 Cannabis use, unspecified, uncomplicated; F17.210 Nicotine dependence, cigarettes, uncomplicated; E87.6 Hypokalemia; D64.9 Anemia, unspecified; R73.9 Hyperglycemia, unspecified; Z20.822 Contact with and (suspected) exposure to COVID-19; Z88.0 Allergy status to penicillin
CPT/HCPCS: 10102